=== PATIENT | female | born 1960 | race Hispanic/Latino ===

== ENCOUNTER 2017-08-29 21:20 | Emergency (ER) | payer OTHER ==
[2017-08-29] MEDS ORDERED: ACETAMINOPHEN 325 MG TAB ONE (22:49)
[2017-08-29] MEDS ORDERED: IBUPROFEN 600 MG TABLET ONE (22:49)
[2017-08-29] MEDS ORDERED: TRAMADOL HCL 50 MG TABLET ONE (23:44)
== END 2017-08-29 23:58 | disposition home or self-care (01) ==
LOC: EDH 21:20
DX: M17.0 Bilateral primary osteoarthritis of knee (principal); M19.072 Primary osteoarthritis, left ankle and foot; M19.071 Primary osteoarthritis, right ankle and foot; M19.012 Primary osteoarthritis, left shoulder; M19.011 Primary osteoarthritis, right shoulder; I10 Essential (primary) hypertension; Z90.710 Acquired absence of both cervix and uterus
CPT/HCPCS: 93005

== ENCOUNTER 2018-01-06 21:12 | Emergency (ER) | payer OTHER ==
[2018-01-06] MEDS ORDERED: KETOROLAC TROMETHAMINE 30MG/ML ONE (21:30)
== END 2018-01-06 21:50 | disposition home or self-care (01) ==
LOC: EDH 21:12
DX: M13.89 Other specified arthritis, multiple sites (principal); I10 Essential (primary) hypertension; Z79.899 Other long term (current) drug therapy; Z90.710 Acquired absence of both cervix and uterus
CPT/HCPCS: 96372; 99283; J1885

== ENCOUNTER 2018-08-27 18:46 | Emergency (ER) | payer OTHER ==
[2018-08-27] MEDS ORDERED: DEXAMETHASONE SOD PHOSPHATE 10MG/ML 1ML VIAL ONE (19:27)
[2018-08-27] MEDS ORDERED: KETOROLAC TROMETHAMINE 30MG/ML ONE (19:27)
== END 2018-08-27 20:02 | disposition home or self-care (01) ==
LOC: EDH 18:46
DX: G89.29 Other chronic pain (principal); M19.012 Primary osteoarthritis, left shoulder; M19.011 Primary osteoarthritis, right shoulder; I10 Essential (primary) hypertension; Z90.710 Acquired absence of both cervix and uterus
CPT/HCPCS: 96372 ×2; 99283; J1100; J1885

== ENCOUNTER 2018-09-10 22:32 | Emergency (ER) | payer OTHER ==
[2018-09-10 23:00] LABS: APPEARANCE,URINE Clear (CLEAR); BILIRUBIN,URINE Negative (NEGATIVE); COLOR,URINE Yellow (YELLOW); GLUCOSE, URINE (UA) Negative (NEGATIVE); KETONES,URINE Negative (NEGATIVE); LEUKOCYTE ESTERASE ,URINE Negative (NEGATIVE); NITRATE,URINE Negative (NEGATIVE); OCCULT BLOOD,URINE Negative (NEGATIVE); PH,URINE 5.5 (5.0-8.0); PROTEIN,URINE Negative (NEGATIVE)
[2018-09-10 23:20] LABS: BASOPHILS % (AUTO) 0.6 % (0.0-5.0); EOSINOPHILS % (AUTO) 1.7 % (0.0-8.0); HEMATOCRIT 34.3 % (36-48); LYMPHOCYTES % (AUTO) 8.7 % (21.0-51.0); MEAN CORPUSCULAR HEMOGLOBIN 26.3 pg (27.0-33.0); MEAN CORPUSCULAR HGB CONC 32.3 g/dL (32.0-36.0); MEAN CORPUSCULAR VOLUME 81.5 fL (79-99); MONOCYTES % (AUTO) 4.4 % (3.0-13.0); NEUTROPHILS % (AUTO) 84.6 % (40.0-77.0); PLATELET COUNT (AUTO) 569 K/uL (130-400); RED BLOOD CELL COUNT(AUTO) 4.21 MIL/uL (4.00-5.50); RED CELL DISTRIBUTION WIDTH 17.3 % (11.0-15.5); WHITE BLOOD COUNT (AUTO) 12.2 K/uL (4.8-10.8)
[2018-09-10 23:26] LABS: CREATININE 0.6 mg/dL (0.5-1.5); POTASSIUM 3.5 mmol/L (3.5-5.1)
[2018-09-10 23:28] LABS: ALBUMIN 3.1 g/dL (3.5-5.0); BILIRUBIN,TOTAL 0.5 mg/dL (0.2-1.0); TOTAL PROTEIN, SERUM 7.2 g/dL (6.0-8.3)
== END 2018-09-11 00:01 | disposition home or self-care (01) ==
LOC: EDH 22:32
DX: R10.13 Epigastric pain (principal); R10.12 Left upper quadrant pain; R10.32 Left lower quadrant pain; R11.2 Nausea with vomiting, unspecified; I10 Essential (primary) hypertension; M19.90 Unspecified osteoarthritis, unspecified site; Z90.710 Acquired absence of both cervix and uterus
CPT/HCPCS: 36415; 74176; 80053; 81003; 82150; 83690; 85025

== ENCOUNTER 2019-01-27 19:05 | Emergency (ER) | payer OTHER ==
[2019-01-27 20:02] LABS: APPEARANCE,URINE Clear (CLEAR); BILIRUBIN,URINE Small (NEGATIVE); COLOR,URINE Dark Yellow (YELLOW); GLUCOSE, URINE (UA) Negative (NEGATIVE); KETONES,URINE Negative (NEGATIVE); LEUKOCYTE ESTERASE ,URINE Moderate (NEGATIVE); NITRATE,URINE Positive (NEGATIVE); OCCULT BLOOD,URINE Negative (NEGATIVE); PROTEIN,URINE Negative (NEGATIVE); UROBILINOGEN,URINE 0.2 mg/dL (0.2-1.0)
[2019-01-27 20:03] LABS: BASOPHILS % (AUTO) 0.4 % (0.0-5.0); EOSINOPHILS % (AUTO) 1.3 % (0.0-8.0); LYMPHOCYTES % (AUTO) 22.5 % (21.0-51.0); MEAN CORPUSCULAR HEMOGLOBIN 30.5 pg (27.0-33.0); MEAN CORPUSCULAR HGB CONC 34.3 g/dL (32.0-36.0); MONOCYTES % (AUTO) 6.9 % (3.0-13.0); NEUTROPHILS % (AUTO) 68.9 % (40.0-77.0); PLATELET COUNT (AUTO) 429 K/uL (130-400); RED BLOOD CELL COUNT(AUTO) 3.94 MIL/uL (4.00-5.50); RED CELL DISTRIBUTION WIDTH 14.7 % (11.0-15.5); WHITE BLOOD COUNT (AUTO) 9.8 K/uL (4.8-10.8)
[2019-01-27 20:10] LABS: AMPHET/METH SCREEN,URINE NEGATIVE (NEGATIVE); BARBITURATE SCREEN, URINE NEGATIVE (NEGATIVE); BENZODIAZEPINES SCREEN,URINE NEGATIVE (NEGATIVE); CANNABINOID SCREEN,URINE NEGATIVE (NEGATIVE); COCAINE SCREEN,URINE NEGATIVE (NEGATIVE); OPIATE SCREEN,URINE NEGATIVE (NEGATIVE); PHENCYCLIDINE SCREEN,URINE NEGATIVE (NEGATIVE)
[2019-01-27 20:12] LABS: INR 0.99 (0.85-1.15); PARTIAL THROMBOPLASTIN TIME 30.2 SEC (26.3-35.5); PROTHROMBIN TIME 10.4 SEC (9.6-11.6)
[2019-01-27 20:16] LABS: BACTERIA,URINE Moderate /HPF (None Seen); CREATININE 0.8 mg/dL (0.5-1.5); POTASSIUM 3.3 mmol/L (3.5-5.1); RBC,URINE 0-1 /HPF (0-1)
[2019-01-27 20:17] LABS: MUCUS,URINE Few LPF (None Seen); SQUAMOUS EPITHELIAL CELL,UR Few /HPF (0-2)
[2019-01-27] MEDS ORDERED: CEFTRIAXONE SODIUM 1 GM ONE (20:17)
[2019-01-27] MEDS ORDERED: SODIUM CHLORIDE 0.9% 50 ML IV ONE (20:18)
[2019-01-27 20:23] LABS: B-TYPE NATRIURETIC PEPTIDE 66 pg/mL (0-100)
[2019-01-27] MEDS ORDERED: ASPIRIN 325 MG TABLET ONE (20:25)
[2019-01-27 20:27] LABS: ALBUMIN 3.7 g/dL (3.5-5.0); BILIRUBIN,TOTAL 0.4 mg/dL (0.2-1.0); TOTAL PROTEIN, SERUM 7.4 g/dL (6.0-8.3)
[2019-01-27] MEDS ORDERED: POTASSIUM BICARB/CIT AC 25 MEQ TABLET.EFF ONE (20:41)
== END 2019-01-27 23:55 | disposition short-term general hospital (02) ==
LOC: EDH 19:05
DX: I63.9 Cerebral infarction, unspecified (principal); R47.01 Aphasia; N39.0 Urinary tract infection, site not specified; I10 Essential (primary) hypertension; M19.90 Unspecified osteoarthritis, unspecified site; G89.29 Other chronic pain; Z79.899 Other long term (current) drug therapy
CPT/HCPCS: 36415; 70450; 71045; 80053; 80305; 81001; 82948; 83880; 84484; 84702; 85025; 85610; 85730; 87040 ×2; 93005; 96374; 99285; J0696

== ENCOUNTER → 2021-10-23 | Outpatient (CLI) | payer OTHER | END | disposition home or self-care (01) | LOC: SHCH 10:09 | PROVIDERS: ATTEND Internal Medicine Cardiovascular Disease | DX: I11.9 Hypertensive heart disease without heart failure (principal); I67.9 Cerebrovascular disease, unspecified; E78.5 Hyperlipidemia, unspecified; I73.9 Peripheral vascular disease, unspecified | CPT/HCPCS: 93306 ==

== ENCOUNTER → 2021-10-31 | Outpatient (CLI) | payer OTHER | END | disposition home or self-care (01) | LOC: SHCH 14:17 | PROVIDERS: ATTEND Internal Medicine Cardiovascular Disease | DX: I73.9 Peripheral vascular disease, unspecified (principal) | CPT/HCPCS: 93925 ==

== ENCOUNTER 2022-08-09 14:31 | Emergency (ER) | payer OTHER ==
[~2022-08-09] VITALS: Ht 165.1 cm; Wt 89.8 kg
[2022-08-09 14:33] VITALS: BP 155/64
== END 2022-08-09 16:44 | disposition left against medical advice (07) ==
LOC: EDH 14:31
DX: Z53.21 Procedure and treatment not carried out due to patient leaving prior to being seen by health care provider (principal)

== ENCOUNTER → 2023-06-17 | Outpatient (CLI) | payer OTHER ==
[~2023-06-17] MED LIST: GADOTERATE MEGLUMINE 10 MMOL/20 ML VIAL IV ONE
== END | disposition home or self-care (01) ==
LOC: RAH 14:40
PROVIDERS: ATTEND Family Medicine
DX: R22.42 Localized swelling, mass and lump, left lower limb (principal); M17.12 Unilateral primary osteoarthritis, left knee
CPT/HCPCS: 73720; A9575